=== PATIENT | female | born 1995 | race Caucasian/White ===

== ENCOUNTER 2025-10-05 17:23 | Day surgery (SDC) | payer BC, SELFPAY ==
[2025-10-05] VITALS (14 sets, daily range): BP systolic 94–129; BP diastolic 56–101; BMI 25.0
--- NOTE | 2025-10-05 10:48 | ED.GENMED ---
History of Present Illness
General
Chief Complaint: Abdominal Pain
Source: patient
Exam Limitations: none
Time Seen by Provider: 10/05/25 10:37
History of Present Illness
History of Present Illness:
30-year-old female presents with the onset of abdominal pain and vomiting starting this morning. The pain is burning in nature that radiates to the back. No blood in the vomit. She states she has been constipated lately. She denies alcohol use
or regular NSAID use. She does vape nicotine but denies any marijuana products. 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 She tried Bentyl this morning without any significant
relief. No prior abdominal surgical history. No urinary symptoms. No other complaints at this time
Phy Exam
Physical Exam
Physical Exam:
General: Well-appearing but uncomfortable respiratory distress
HEENT normal cephalic atraumatic
Heart: Regular rate and rhythm
Lungs: Clear no wheeze
Abdomen is soft tender to the mid abdomen and right lower quadrant mild guarding nondistended negative Aguilera sign no significant costovertebral angle tenderness
Extremities: No cyanosis
Course
Orders/Labs/Results
Orders:
Orders
10/05/25 10:46
0.9% Sodium Chloride 1000 ml [Nss] 1,000 ml IV BOLUS
Famotidine [Pepcid] 20 mg IV NOW STA
Ondansetron Injectable [Zofran] 4 mg IV NOW STA
10/05/25 10:47
Test Result ONCE
10/05/25 10:48
CT Abd/pelvis W Iv Cont Urgent
Comment:
Reason For Exam: abdominal pain, vomiting
10/05/25 11:49
Complete Blood Count/With Diff Urgent
Comprehensive Metabolic Panel Urgent
HCG, Serum Qualitative Screen Urgent
Lipase Urgent
10/05/25 13:16
Urinalysis Reflex To Culture Urgent
Date Specimen was Collected: 10/05/25
Time Specimen was Collected: 11:37
10/05/25 14:40
Ketorolac [Toradol] 15 mg IV NOW STA
10/05/25 14:44
Piperacillin/Tazo 3.375 Gram [Zosyn] 3.375 gram in 50 ml IV NOW
Abnormal Lab Results
10/05/25 10/05/25
11:49 13:16
Absolute Monos (auto) 0.7 H 10^3/uL
(0.1-0.6)
Calcium 10.6 H mg/dl
(8.4-10.2)
Urine Ketones 2+ A
(Negative)
10/05/25 11:49
10/05/25 11:49
Vital Signs
Initial and Last Documented VS:
Initial Vital Signs
Temp Pulse Resp BP Pulse Ox
98.1 F 76 16 129/101 100
10/05/25 10:12 10/05/25 10:12 10/05/25 10:12 10/05/25 10:12 10/05/25 10:12
Last Documented Vital Signs
Temp Pulse Resp BP Pulse Ox
98.1 F 90 19 114/75 100
10/05/25 10:12 10/05/25 14:30 10/05/25 14:30 10/05/25 14:05 10/05/25 14:30
MDM/Problems Addressed
Differential Diagnosis Includes:
Patient with mid abdominal pain and vomiting consider viral illness versus gastritis versus pancreatitis constipation or bowel obstruction
Will check labs. Treat symptomatically with Zofran and Pepcid fluids. Given the tenderness on exam CT ordered
*Pulse Oximetry
SaO2: 100
Oxygen Mode of Delivery: Room air
Patient hypoxic: no
*Critical Care Note
Total Time (30-74mins, 75-104mins- exclusive of procedures): Not Applicable
Update Note
Update Note:
Patient reexamined. She states the pain is slightly improved but strainer tender to the mid and right abdomen. CT reviewed and demonstrates evidence of mild acute appendicitis without evidence of rupture. Toradol given for pain. Will reach out to
general surgery
ED Attending Note
-
Portions of this chart may have been created with voice recognition software.� Occasional wrong word or��sound alike� substitutions may have occurred due to the inherent limitations of voice recognition software.
Discharge Plan
Departure
Patient Disposition: Admit
Date of Disposition: 10/05/25
Time of Disposition: 14:56
Presentation/result/management discussed w/ accepting MD/DO: Pradeep
Discharge Problem:
Acute appendicitis
Referrals:
Jayashree Macias CRNP [Family Provider, Internal Medicine]
Interventions
Interventions:
*Risk Screen - Suicide Last Done: 10/05/25 10:12
*General Assessment Last Done: 10/05/25 11:04
*Neglect/Abuse Screening Last Done: 10/05/25 10:12
*ED- Fall Risk Assessment Last Done: 10/05/25 11:04
*ED COVID-19 Vaccine History Last Done: 10/05/25 11:04
*ED Influenza Vaccine History Last Done: 10/05/25 11:04
BC-Qkqouy-Eljhnbhyms Assessment Last Done: 10/05/25 11:02
Discharge Date and Time
Print Language: BENGALI
[2025-10-05] MEDS: NSS 1000 IV (12:07)
[2025-10-05] MEDS: PEPCID 20 MG IV (12:08)
[2025-10-05] MEDS: ZOFRAN 4 MG IV ×2 (12:08→17:42)
[2025-10-05 12:12] LABS: Hematocrit 41.2 % (37.0-47.0); Hemoglobin 13.6 g/dL (12.0-16.0); Mean Corp Hgb Conc. 33.0 g/dL (33.0-37.0); Mean Corpuscular Volume 83.7 fL (81.0-99.0); Nucleated Red Blood Cells % 0 %; Platelet Count 330 10^3/uL (130-400); Red Cell Dist. Width 12.4 % (11.5-14.5)
[2025-10-05 12:43] LABS: HCG, Serum Qualitative Screen Negative
[2025-10-05 12:48] LABS: ALT (SGPT) 14 U/L (0-35); AST (SGOT) 18 U/L (14-36); Albumin 4.8 g/dl (3.5-5.0); Alkaline Phosphatase 52 U/L (38-126); Blood Urea Nitrogen 15 mg/dl (7-17); Calcium 10.6 mg/dl (8.4-10.2); Carbon Dioxide 26 mmol/L (22-30); Chloride 103 mmol/L (98-107); Estimated Creatinine Clearance 86 ml/min; Glucose 87 mg/dl (70-99); Lipase 157 U/L (23-300); Potassium 4.6 mmol/L (3.5-5.1); Sodium 138 mmol/L (135-145); Total Protein 7.4 g/dl (6.3-8.2); eGFR > 60.00
[2025-10-05 13:25] LABS: Urine Character Clear (Clear)
[2025-10-05] MEDS: TORADOL 15 MG IV (14:49)
[2025-10-05] MEDS: ZOSYN 50 IV (14:49)
--- NOTE | 2025-10-05 15:52 | HP.FOC2 ---
Focused History & Physical
Chief Complaint
HPI:
Chief Complaint: Abdominal pain
HPI / Indication for Planned Procedure: 30-year-old female was in her usual baseline state of health until she awoke this a.m. with upper abdominal pain that has begun to increase in severity and localized towards the lower abdomen and back. She
describes it as a burning quality. She has had nausea but no vomiting. She has had anorexia. No fevers chills or sweats. She has had similar episodes in the past but they have always subsided rather quickly.
No past abdominal surgical history. She has had colonoscopy which she describes as showing nonspecific inflammation. An upper endoscopy in the past was normal. Diagnosed with irritable bowel.
Relevant Past Medical History: Other (Anxiety/depression)
Relevant Social History: Tobacco Use (Vape nicotine)
Relevant Family History: Negative
Relevant Past Surgical History: Negative
Review of Systems
Review of Pertinent Systems: All Systems Negative
Medication
See Medication form for detailed medications: Yes
Medications Reviewed: Yes
Allergies and Reactions
Patient has Allergies: Yes
Noted Allergies and Reactions:
Allergy/AdvReac Type Severity Reaction Status Date / Time
lamotrigine (From Lamictal) Allergy Mild Rash Verified 10/05/25 10:12
Penicillins Allergy Unknown Unknown Verified 10/05/25 10:12
Pertinent Physical Exam
All Other Systems: Negative
Head/Neck: Normal
Lungs: Normal
Heart: Normal
Abdomen: Other (Soft, nondistended, tenderness to palpation greatest in the right lower quadrant, no rebound but some guarding on deep palpation.)
Extremities: Normal
Neurological: Normal
Diagnosis / Assessment
Assessment: 30-year-old female with acute appendicitis.
Reviewed with patient history, examination and CT imaging consistent with acute appendicitis. Discussed both operative and nonoperative management options and associated risks/benefits of approaches. Patient is in agreement to proceed with
appendectomy.
Laparoscopic appendectomy reviewed in detail with the patient. Discussed operative technique utilizing diagrams or drawings, alternative management options, benefits and potential risks such as but not limited to bleeding, infectious or wound
healing complications, iatrogenic injury to surrounding viscera and staple line leakage. Discussed the typical postoperative recovery pending operative findings.
Any of the patient's concerns or questions were fully addressed and informed consent was obtained.
Plan: OR for laparoscopic appendectomy.
Empiric antibiotic coverage with Zosyn initiated emergency department.
Nothing by mouth, IV fluid hydration and supportive care awaiting operative room availability.
SCDs for DVT prophylaxis
Plan / Procedure
Laparoscopic appendectomy
Anesthesia/Sedation to be done by Anesthesia Provider: Yes
--- NOTE | 2025-10-05 15:55 | W.SUR.PREOP ---
Pre-Operative Surgical Note
-
I have examined this patient prior to the performance of the scheduled procedure.
The patient's condition is unchanged from the time of the current History and
Physical and the patient is able to undergo the scheduled procedure.
--- NOTE | 2025-10-05 17:20 | W.IMMPOSTOP ---
Addendum entered and electronically signed by Murray Fernández MD 10/05/25 17:51:
#[id number]
Original Note:
Surgical Immed Post Op Note
-
Primary Surgeon: Murray Fernández MD
Assisting Surgeon: None
Pre-op Diagnosis: Acute appendicitis
Post-op Diagnosis: Acute appendicitis
Procedure Performed: Laparoscopic appendectomy
Anesthesia Type: GETA +0.25% Marcaine with epi
Specimen / Cultures: Appendix/none
Estimated Blood Loss: 6 mL
Complications: None immediate
Operative Findings: Acutely inflamed, distended appendix. No perforation, no abscess, no purulence. Appendectomy completed without disruption.
Plan: Routine postoperative care, DC home when pain controlled and tolerating p.o. no antibiotics necessary postop
[2025-10-05] MEDS: DILAUDID 0.25 MG IV (18:13)
== END 2025-10-05 18:30 | disposition home or self-care (01) ==
LOC: PACU 17:23
PROVIDERS: Physician Assistant; ATTENDING PHYSICIAN Surgery; EMERGENCY PHYSICIAN Emergency Medicine; FAMILY PHYSICIAN Nurse Practitioner Adult Health
DX: K35.80 Unspecified acute appendicitis (principal)
CPT/HCPCS: 44970; 74177; 80053; 81003; 83690; 84703; 85025; 88304; 96361; 96365; 96375; 96376; 99285; Q9967